=== PATIENT | female | born 2000 | race Hispanic/Latino ===

== ENCOUNTER 2022-11-13 12:10 | Emergency (ER) | payer OTHER ==
[~2022-11-13] VITALS: Ht 160 cm; Wt 80.0 kg
[2022-11-13 12:27] VITALS: BP 118/78
[2022-11-13 12:30] VITALS: BP 120/83
[2022-11-13 12:46] VITALS: BP 110/91
[2022-11-13] MEDS ORDERED: KURIC21 EX (14:20)
[2022-11-13] MEDS ORDERED: METHOCARBAMOL500 MG PO (14:22)
[2022-11-13] MEDS ORDERED: NAPROXEN500 MG PO (14:22)
[2022-11-13] MEDS ORDERED: MEDDOSEPAK PO (14:22)
[2022-11-13 14:50] VITALS: BP 110/91
== END 2022-11-13 15:08 | disposition home or self-care (01) ==
LOC: ED 12:10
DX: G24.3 Spasmodic torticollis (principal)